=== PATIENT | male | born 1955 | race Caucasian/White ===

== ENCOUNTER 2017-05-11 17:14 | Emergency (ER) | payer OTHER ==
[~2017-05-11] VITALS: Ht 180.3 cm; Wt 81.6 kg
[2017-05-11 17:19] VITALS: BP_SYST 142
--- NOTE | 2017-05-11 18:45 | NUR ---
Pt left after being triaged, notified front office assistant, seen ambulating out of ER.
== END 2017-05-11 18:45 | disposition left against medical advice (07) ==
LOC: SED 17:14
DX: R05 Cough (principal); R07.89 Other chest pain; Z53.21 Procedure and treatment not carried out due to patient leaving prior to being seen by health care provider

== ENCOUNTER 2023-10-16 12:12 | Emergency (ER) | payer OTHER ==
[~2023-10-16] VITALS: Ht 182.9 cm; Wt 79.4 kg
[2023-10-16 12:12] VITALS: BP_SYST 111; PULSE 78; RESP 18; TEMP 97; O2SAT 98
[2023-10-16] MEDS ORDERED: NABU-140 PO (13:28)
[2023-10-16 13:34] VITALS: BP_SYST 111; PULSE 78; RESP 18; TEMP 97; O2SAT 98
== END 2023-10-16 13:33 | disposition home or self-care (01) ==
LOC: SED 12:12
DX: M94.0 Chondrocostal junction syndrome [Tietze] (principal); R07.89 Other chest pain; Z90.49 Acquired absence of other specified parts of digestive tract; Z79.899 Other long term (current) drug therapy
CPT/HCPCS: 71046; 99283